=== PATIENT | female | born 1995 | race Hispanic/Latino ===

== ENCOUNTER 2017-08-31 06:26 | Emergency (ER) | payer BC ==
[2017-08-31] MEDS ORDERED: ONDANSETRON ODT 4 MG TAB ONE (08:10)
[2017-08-31] MEDS ORDERED: MORPHINE SULFATE 2 MG/ML 1ML SYG ONE (08:10)
[2017-08-31] MEDS ORDERED: PENICILLIN V POTASSIUM 500 MG TABLET ONE (08:10)
== END 2017-08-31 09:35 | disposition home or self-care (01) ==
LOC: EDH 06:26
DX: K05.10 Chronic gingivitis, plaque induced (principal)
CPT/HCPCS: 96372